=== PATIENT | male | born 1970 | race Caucasian/White ===

== ENCOUNTER 2019-08-08 13:25 | Inpatient (IN) | payer OTHER ==
[2019-08-08 17:43] VITALS: BMI 25.7
--- NOTE | 2019-08-08 20:53 | HP ---
"COWS - Scale Resting Pulse: 0= [place] 80 or Below Sweatin=Flushed/Facial Moisture Restless Observation: 0= Sits Still Pupil Size: 0= Normal to Room Light Bone or Joint Aches: 1= Mild Discomfort Runny Nose/ Eye Tearin= Constantly Teary/Runny GI Upset > 30mins: 2= Nausea/Diarrhea Tremor Observation: 0= None Yawning Observation: 0= None Anxiety or Irritability: 2=Irritable/Anxious Goose Flesh Skin: 0=Smooth Skin COWS Score: 11 CIWA Score Nausea/Vomitin Muscle Tremors: None Anxiety: 4-Mod. Anxious/Guarded Agitation: 0-Normal Activity Paroxysmal Sweats: 2 Orientation: 1-Uncertain about Date Tacttile Disturbances: 0-None Auditory Disturbances: 0-None Visual Disturbances: 2-Mild Sensitivity Headache: 2-Mild CIWA-Ar Total Score: 13 - Admission Criteria OASAS Guidelines: Admission for Medically Managed Detox: Requires at least one of the followin. CIWA greater than 12 2. Seizures within the past 24 hours 3. Delirium tremens within the past 24 hours 4. Hallucinations within the past 24 hours 5. Acute intervention needed for co occurring medical disorder 6. Acute intervention needed for co occurring psychiatric disorder 7. Severe withdrawal that cannot be handled at a lower level of care (continued vomiting, continued diarrhea, abnormal vital signs) requiring intravenous medication and/or fluids 8. Admission [facility] Allergies/Adverse Reactions: Allergies Allergy/AdvReac Type Severity Reaction Status Date / Time No Known Allergies Allergy Verified 08/08/19 17:38 History of Present Illness: pt here requesting detox from etoh and heroin use since age 14 , reports he was in [place] x 4 years , returned one month ago , previously in [facility] until 8 mo ago , stopped going @ 70 mg MDD . Current daily use 10 bags IV in [facility] , needles from exchange , denies re-using, denies sharing , denies OD , latest use yesterday . cocaine : 10 bags/day IV , latest use yesterday DENIES [facility] AT THIS TIME etoh : 7-8 beers/day , denies seizures, blackouts , tremors . was in detox [facility] left AMA Tuesday , relapsed after leaving facility . tobacco : 1 ppd not interested in smoking cessation . Search Terms: ariadne russell, 1970 Search Date: 08/08/2019 08:45:15 PM States Searched: [place] , [place] This report was requested by: Ary Herman | Reference #: [id number] Prescriptions Dispensed in [place], [place] There are no results for the search terms that you entered. PMHX : Hep C no tx PShx : cyst Psych : SAD Exam Limitations: Clinical Condition - Ebola screening Have you traveled outside of the country in the last 21 days: No (NN) Have you had contact with anyone from an Ebola affected area: No Do you have a fever: No - Review of Systems Constitutional: No Symptoms Reported, Changes in sleep EENT: reports: Nose Congestion Respiratory: reports: No Symptoms reported Cardiac: reports: No Symptoms Reported GI: reports: Nausea, Indigestion, Abdominal cramping : reports: No Symptoms Reported Musculoskeletal: reports: See HPI, Joint Pain (occasional knee pain), Muscle Pain Integumentary: reports: See HPI Neuro: reports: Headache Endocrine: reports: No Symptoms Reported Psychiatric: reports: Agitated, Anxious, Disorientated, other (h/o cutting on the forearm in the past , denies current SI / HI .) Patient History - Smoking Cessation Smoking history: Current every day smoker Have you smoked in the past 12 months: Yes Hx Chewing Tobacco Use: No Initiated information on smoking cessation: Yes 'Breaking Loose' booklet given: 08/08/19 - Substances abused Alcohol Substance route: Oral Frequency: Daily Amount used: 8 x 24- oz BOTTLES Age of first use: 13 Date of last use: 08/07/19 Heroin Substance route: Injection Frequency: Daily Amount used: 10 BAGS Age of first use: 14 Date of last use: 08/07/19 Cocaine Substance route: Injection Frequency: Daily Amount used: 10-12 BAGS Age of first use: 14 Date of last use: 08/07/19 Admission Physical Exam BHS - Vital Signs Vital Signs: Vital Signs - 24 hr 08/08/19 17:34 Temperature 97.5 F L Pulse Rate 77 Respiratory 16 Rate Blood Pressure 114/75 - Physical General Appearance: Yes: Mild Distress, Moderate Distress, Anxious HEENTM: Yes: EOMI, Normocephalic, Normal Voice Respiratory: Yes: Lungs Clear, No Respiratory Distress, No Accessory Muscle Use Neck: Yes: No masses,lesions,Nodules, Trachea in good position Cardiology: Yes: Regular Rhythm, Regular Rate, S1, S2 Abdominal: Yes: Non Tender, Soft, Decreased BS Back: Yes: Normal Inspection Musculoskeletal: Yes: full range of Motion, Gait Steady Extremities: Yes: Normal Range of Motion, Non-Tender, Swelling (nani hands dorsum - mild) Neurological: Yes: Alert, Disoriented Integumentary: Yes: Warm, Track Schwab (nani hands dorsum and forearms) - Diagnostic (1) Opioid use disorder Current Visit: Yes Status: Chronic (2) Cocaine use disorder Current Visit: Yes Status: Chronic (3) Nicotine dependence Current Visit: Yes Status: Chronic Qualifiers: Nicotine product type: cigarettes Breathalyzer - Breathalyzer Breathalyzer: 0 Urine Drug Screen - Test Device Lot number: [id number] Expiration date: 02/21/21 - Control Is test valid?: Yes - Results Drug screen NEGATIVE: No Urine drug screen results: HANY-Cocaine, FEN-Fentanyl, MOP-Opiates, MTD-Methadone , BZO-Benzodiazepines Inpatient Rehab Admission - Rehab Decision to Admit Inpatient rehab admission?: No"
[2019-08-08] MEDS ORDERED: MELATONIN 5 MG TABLETS PO PRN (21:21)
[2019-08-08] MEDS ORDERED: ACETAMINOPHEN 325 MG TABLET (FP) PO PRN ×2 (21:21)
[2019-08-08] MEDS ORDERED: MAG HYDROX/AL HYDROX/SIMETH 30 ML UNIT-DOSE CUP PO PRN (21:21)
[2019-08-08] MEDS ORDERED: hydrOXYzine PAMOATE 25 MG CAPSULE (FP) PO PRN (21:21)
[2019-08-08] MEDS ORDERED: MAGNESIUM HYDROX 2400MG/30ML ORAL SUSPENSION 30 ML CUP PO PRN (21:21)
[2019-08-08] MEDS ORDERED: BISMUTH SUBSALICYLATE 524 MG/30 ML UD PO PRN (21:21)
[2019-08-08] MEDS ORDERED: MENTHOL/PHENOL 1 EACH UD MM PRN (21:21)
[2019-08-08] MEDS ORDERED: IBUPROFEN 400 MG TABLET (FP) PO PRN (21:21)
[2019-08-08] MEDS ORDERED: METHOCARBAMOL 500 MG TABLET PO PRN (21:21)
[2019-08-08] MEDS ORDERED: guaiFENesin 200 MG/10 ML 10 ML UNIT-DOSE CUPS PO PRN (21:21)
[2019-08-08] MEDS ORDERED: MAGNESIUM CITRATE 300 ML BOTTLE PO PRN (21:21)
[2019-08-08] MEDS ORDERED: P-EPHED 60MG/TRIPROLIDI 2.5MG TABLET PO PRN (21:21)
[2019-08-08] MEDS ORDERED: diazePAM 5 MG TABLET PO PRN (21:23)
[2019-08-08] MEDS ORDERED: cloNIDine HCL 0.1 MG TABLET PO PRN (21:23)
[2019-08-08] MEDS ORDERED: METHADONE HCL 10 MG TABLET (FOR DETOX USE ONLY) PO ONE (22:00)
[2019-08-08] MEDS: diazePAM 5 MG TABLET PO SCH (23:01)
[2019-08-08] MEDS: THIAMINE HCL 100 MG TABLET (FP) PO SCH (23:01)
[2019-08-09] MEDS: diazePAM 5 MG TABLET PO SCH ×3 (06:32→22:30)
[2019-08-09] MEDS ORDERED: METHADONE HCL 10 MG TABLET (FOR DETOX USE ONLY) ONE (08:54)
[2019-08-09] MEDS ORDERED: METHADONE HCL 5 MG TABLET (FOR DETOX USE ONLY) ONE (08:54)
[2019-08-09] MEDS ORDERED: METHADONE (DETOX) 20 MG, METHADONE (DETOX) 5 MG PO ONE (10:00)
[2019-08-09] MEDS: PRENATAL VITAMINS W/ FOLIC ACID TABLET (FP) PO SCH (10:42)
[2019-08-09 11:39] LABS: HEMATOCRIT 41.2 % (35.4-49); HEMOGLOBIN 14.3 GM/dL (11.7-16.9); MCH 33.8 pg (25.7-33.7); MCHC 34.7 g/dl (32.0-35.9); MEAN CELL VOLUME 97.5 fl (80-96); MEAN PLT VOLUME 7.4 fl (7.5-11.1); PLATELET COUNT 283 K/MM3 (134-434); RBC 4.22 M/mm3 (4.00-5.60); RDW 13.2 % (11.9-15.9); WHITE BLOOD COUNT 8.8 K/mm3 (4.0-10.0)
[2019-08-09 11:44] LABS: BILIRUBIN,TOTAL 0.5 mg/dL (0.2-1); BLOOD UREA NITROGEN 16.7 mg/dL (7-18); CREATININE 0.9 mg/dL (0.55-1.3); TOT PROT 6.2 g/dl (6.4-8.2)
--- NOTE | 2019-08-09 11:45 | PN ---
[facility] CIWA - CIWA Score Nausea/Vomitin-No Nausea/No Vomiting Muscle Tremors: 1-None Visible, but [place] Anxiety: 2 Agitation: 1-Slight > Activity Paroxysmal Sweats: 2 Orientation: 1-Uncertain about Date Tacttile Disturbances: 2-Mild Itch/Numbness/Burn Auditory Disturbances: 0-None Visual Disturbances: 1-Very Mild Sensitivity Headache: 1-Very Mild CIWA-Ar Total Score: 11 S COWS - Scale Resting Pulse: 0= [place] 80 or Below Sweatin= Chills/Flushing Restless Observation: 1= Difficult to Sit Still Pupil Size: 0= Normal to Room Light Bone or Joint Aches: 1= Mild Discomfort Runny Nose/ Eye Tearin= Nasal Congestion GI Upset > 30mins: 1= Stomach Cramp Tremor Observation of Outstretched Hands: 1= Tremor [place], Not Seen Yawning Observation: 2= >3x During Session Anxiety or Irritability: 2=Irritable/Anxious Goose Flesh Skin: 0=Smooth Skin COWS Score: 10 S Progress Note (SOAP) Subjective: Patient is a 49 yo male with hx of alcohol and opioid dependence is here on methadone and valium detox protocol c/o of interrupted sleep, chills, sweats Objective: 08/09/19 11:44 Vital Signs Temperature 97.7 F 08/09/19 10:00 Pulse Rate 75 08/09/19 10:00 Respiratory Rate 18 08/09/19 10:00 Blood Pressure 116/73 08/09/19 10:00 O2 Sat by Pulse Oximetry (%) Laboratory Last Values Sodium 141 mmol/L (136-145) 08/09/19 08:20 Potassium 4.0 mmol/L (3.5-5.1) 08/09/19 08:20 Chloride 107 mmol/L (98-107) 08/09/19 08:20 Carbon Dioxide 28 mmol/L (21-32) 08/09/19 08:20 Anion Gap 5 MMOL/L (8-16) L 08/09/19 08:20 BUN 16.7 mg/dL (7-18) 08/09/19 08:20 Creatinine 0.9 mg/dL (0.55-1.3) 08/09/19 08:20 Est GFR (CKD-EPI)AfAm 115.83 08/09/19 08:20 Est GFR (CKD-EPI)NonAf 99.94 08/09/19 08:20 Random Glucose 153 mg/dL (74-106) H 08/09/19 08:20 Calcium 9.0 mg/dL (8.5-10.1) 08/09/19 08:20 Total Bilirubin 0.5 mg/dL (0.2-1) 08/09/19 08:20 AST 54 U/L (15-37) H 08/09/19 08:20 ALT 96 U/L (13-61) H 08/09/19 08:20 Alkaline Phosphatase 110 U/L (45-117) 08/09/19 08:20 Total Protein 6.2 g/dl (6.4-8.2) L 08/09/19 08:20 Albumin 3.0 g/dl (3.4-5.0) L 08/09/19 08:20 labs reviewed 08/09/19 11:46 Assessment: 08/09/19 11:46 Aox3 no acute distress EENT WNL Full ROM ambulating int he unit withdrawal sx Plan: increase fluids continue detox continue to monitor
--- NOTE | 2019-08-09 12:01 | EKG ---
Test Reason : Blood Pressure : / mmHG Vent. Rate : 062 BPM Atrial Rate : 062 BPM P-R Int : 110 ms QRS Dur : 088 ms QT Int : 408 ms P-R-T Axes : 016 076 069 degrees QTc Int : 414 ms SINUS RHYTHM WITH SHORT [place] OTHERWISE NORMAL ECG NO PREVIOUS ECGS AVAILABLE Confirmed by JUVENTINO VELA, ALBARO ([id number]) on 08/09/2019 12:01:33 PM Referred By: Confirmed By:ALBARO JAUREGUI MD
--- NOTE | 2019-08-09 13:56 | CONSULT ---
[facility] Psychiatric Consult - Data Date of interview: 08/09/19 Admission source: Self-referred Identifying data: Mr Bo is a 49 years old male , unemployed with no source of income, homeless seeking detox treatment for alcohol, opioid and cocaine Substance Abuse History: Reports history of alcohol, heroin and cocaine use. Refer to addiction counselor's summary for further information Medical History: Significant for hepatitis C and history of cyst removal in upper right chest. Smokes cigarettes 1 ppd Psychiatric History: Reports being diagnosed with Schizophrenia approximately 6- 7 years ago while in [facility]. Reports multiple psychiatric hospitalizations in [place] & [facility]. 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 Beside Klonopin that he was prescribed in [place] he does recall name of any medication he has been on. He is sure whether or not he was prescribed medication when he was discharged from [place]. 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 Denies previous suicidal attempt. At present, denies experiencing psychotic symptoms, S/H ideations. However, reports sleeping poorly Physical/Sexual Abuse/Trauma History: Denies history of abuse as a child or DV relationship Mental Status Exam - Mental Status Exam Alert and Oriented to: Time, Place, Person Cognitive Function: Fair Patient Appearance: Disheveled Mood: Hopeful, Euthymic Patient Behavior: Cooperative Speech Pattern: Clear Voice Loudness: Normal Thought Process: Intact Hallucinations: Denies Suicidal Ideation: Denies Homicidal Ideation: Denies Insight/Judgement: Poor Sleep: Poorly Appetite: Good Muscle strength/Tone: Normal Gait/Station: Normal Psychiatric Findings - Problem List ([place] 1, 2,3) (1) Schizophrenia Current Visit: Yes Status: Chronic (2) Uncomplicated opioid dependence Current Visit: Yes Status: Acute (3) Alcohol dependence, uncomplicated Current Visit: Yes Status: Acute (4) Cocaine dependence Current Visit: Yes Status: Acute (5) Nicotine dependence Current Visit: Yes Status: Chronic Qualifiers: Nicotine product type: cigarettes (6) Hepatitis C Current Visit: Yes Status: Chronic - Initial Treatment Plan Initial Treatment Plan: Continue inpatient detoxification
[2019-08-09] MEDS: THIAMINE HCL 100 MG TABLET (FP) PO SCH (22:30)
[2019-08-10] MEDS ORDERED: diazePAM 5 MG TABLET PO SCH (06:00)
[2019-08-10] MEDS: PRENATAL VITAMINS W/ FOLIC ACID TABLET (FP) PO SCH (09:17)
[2019-08-10 09:35] VITALS: BP 124/78; PULSE 67; TEMP 96.3
[2019-08-10] MEDS ORDERED: METHADONE HCL 10 MG TABLET (FOR DETOX USE ONLY) PO ONE (10:00)
--- NOTE | 2019-08-10 11:37 | PN ---
[facility] CIWA - CIWA Score Nausea/Vomitin-No Nausea/No Vomiting Muscle Tremors: 3 Anxiety: 2 Agitation: 2 Paroxysmal Sweats: 2 Orientation: 0-Oriented Tacttile Disturbances: 0-None Auditory Disturbances: 0-None Visual Disturbances: 0-None Headache: 0-None Present CIWA-Ar Total Score: 9 BHS COWS - Scale Resting Pulse: 0= [place] 80 or Below Sweatin= No chills or Flushing Restless Observation: 1= Difficult to Sit Still Pupil Size: 0= Normal to Room Light Bone or Joint Aches: 1= Mild Discomfort Runny Nose/ Eye Tearin= None GI Upset > 30mins: 0= None Tremor Observation of Outstretched Hands: 1= Tremor [place], Not Seen Yawning Observation: 1= 1-2x During Session Anxiety or Irritability: 2=Irritable/Anxious Goose Flesh Skin: 0=Smooth Skin COWS Score: 6 S Progress Note (SOAP) Subjective: restless irritable agitation sweats Objective: 08/10/19 11:37 Vital Signs Temperature 96.3 F L 08/10/19 09:34 Pulse Rate 67 08/10/19 09:34 Respiratory Rate 17 08/10/19 09:34 Blood Pressure 124/78 08/10/19 09:34 O2 Sat by Pulse Oximetry (%) Laboratory Tests 08/09/19 08/09/19 08/09/19 08:20 08:20 08:20 WBC 8.8 RBC 4.22 Hgb 14.3 Hct 41.2 MCV 97.5 H MCH 33.8 H MCHC 34.7 RDW 13.2 Plt Count 283 MPV 7.4 L Sodium 141 Potassium 4.0 Chloride 107 Carbon Dioxide 28 Anion Gap 5 L BUN 16.7 Creatinine 0.9 Est GFR (CKD-EPI)AfAm 115.83 Est GFR (CKD-EPI)NonAf 99.94 Random Glucose 153 H Calcium 9.0 Total Bilirubin 0.5 AST 54 H ALT 96 H Alkaline Phosphatase 110 Total Protein 6.2 L Albumin 3.0 L RPR Titer Nonreactive aaox3 ambulating no acute distress Assessment: 08/10/19 11:37 withdrawals Plan: continue detox
--- NOTE | 2019-08-10 12:46 | PN ---
S Progress Note Note: pt did not want to stay to complete his detox. pt was advised to stay and prevent relapse, seizures, DT, OD and or loss; pt chose to sign AMA.
--- NOTE | 2019-08-10 12:47 | DS ---
[facility] Detox Discharge Summary Admission Date: 08/08/19 - History Present History: Alcohol Dependence, Cocaine Dependence, Opioid Dependence - Physical Exam Results Vital Signs: Vital Signs Temperature 96.3 F L 08/10/19 09:34 Pulse Rate 67 08/10/19 09:34 Respiratory Rate 17 08/10/19 09:34 Blood Pressure 124/78 08/10/19 09:34 O2 Sat by Pulse Oximetry (%) Pertinent Admission Physical Exam Findings: Vital Signs Temperature 96.3 F L 08/10/19 09:34 Pulse Rate 67 08/10/19 09:34 Respiratory Rate 08/10/19 09:34 Blood Pressure 124/78 08/10/19 09:34 O2 Sat by Pulse Oximetry (%) Laboratory Tests 08/09/19 08/09/19 08/09/19 08:20 08:20 08:20 WBC 8.8 RBC 4.22 Hgb 14.3 Hct 41.2 MCV 97.5 H MCH 33.8 H MCHC 34.7 RDW 13.2 Plt Count 283 MPV 7.4 L Sodium 141 Potassium 4.0 Chloride 107 Carbon Dioxide 28 Anion Gap 5 L BUN 16.7 Creatinine 0.9 Est GFR (CKD-EPI)AfAm 115.83 Est GFR (CKD-EPI)NonAf 99.94 Random Glucose 153 H Calcium 9.0 Total Bilirubin 0.5 AST 54 H ALT 96 H Alkaline Phosphatase 110 Total Protein 6.2 L Albumin 3.0 L RPR Titer Nonreactive aaox3 ambulating no acute distress - Treatment Hospital Course: Rehab Referral Accepted - Medication Discharge Medications: Ambulatory Orders NK [No Known Home Medication] 08/08/19 - Diagnosis (1) Alcohol dependence, uncomplicated Status: Acute (2) Cocaine dependence Status: Acute (3) Uncomplicated opioid dependence Status: Acute (4) Cocaine use disorder Status: Chronic (5) Hepatitis C Status: Chronic (6) Nicotine dependence Status: Chronic Qualifiers: Nicotine product type: cigarettes (7) Opioid use disorder Status: Chronic (8) Schizophrenia Status: Chronic - AMA Did Patient Leave Against Medical Advice: Yes
[2019-08-11] MEDS ORDERED: diazePAM 5 MG TABLET PO ONE (06:00)
[2019-08-11] MEDS ORDERED: METHADONE (DETOX) 10 MG, METHADONE (DETOX) 5 MG PO ONE (10:00)
[2019-08-12] MEDS ORDERED: METHADONE HCL 10 MG TABLET (FOR DETOX USE ONLY) PO ONE (10:00)
[2019-08-13] MEDS ORDERED: METHADONE HCL 5 MG TABLET (FOR DETOX USE ONLY) PO ONE (06:00)
== END 2019-08-10 12:16 | disposition left against medical advice (07) | DRG 770 ==
LOC: YASAS 13:25 → Y6N 22:21
PROVIDERS: ADMIT Allergy & Immunology; ATTEND Allergy & Immunology
PROC: HZ2ZZZZ Detoxification Services for Substance Abuse Treatment (ICD-10-PCS; principal; 2019-08-08)
DX: F11.23 Opioid dependence with withdrawal (principal); F10.230 Alcohol dependence with withdrawal, uncomplicated; F12.20 Cannabis dependence, uncomplicated; F17.210 Nicotine dependence, cigarettes, uncomplicated; F20.0 Paranoid schizophrenia; B18.2 Chronic viral hepatitis C; Z59.0 Homelessness
CPT/HCPCS: 36415; 80053; 85027; 86593; 93005; 93010

== ENCOUNTER 2020-12-30 11:50 | Inpatient (IN) | payer OTHER ==
[2020-12-30 12:42] VITALS: BMI 25.5
[2020-12-30] MEDS ORDERED: BISMUTH SUBSALICYLATE 524 MG/30 ML PO PRN (12:57)
[2020-12-30] MEDS ORDERED: MENTHOL/PHENOL 1 EACH UD MM PRN (12:57)
[2020-12-30] MEDS ORDERED: METHOCARBAMOL 500 MG TABLET PO PRN (12:57)
[2020-12-30] MEDS ORDERED: MAG HYDROX/AL HYDROX/SIMETH 30 ML UNIT-DOSE CUP PO PRN (12:57)
[2020-12-30] MEDS ORDERED: ONDANSETRON *ODT* 4 MG TABLET SL PRN (12:57)
[2020-12-30] MEDS ORDERED: MAGNESIUM CITRATE 300 ML BOTTLE PO PRN (12:57)
[2020-12-30] MEDS ORDERED: ACETAMINOPHEN 325 MG TABLET (FP) PO PRN ×2 (12:57)
[2020-12-30] MEDS ORDERED: MAGNESIUM HYDROX 2400MG/30ML ORAL SUSPENSION 30 ML CUP PO PRN (12:57)
[2020-12-30] MEDS ORDERED: NICOTINE POLACRILEX 2 MG GUM BUC PRN (12:57)
[2020-12-30] MEDS ORDERED: IBUPROFEN 400 MG TABLET (FP) PO PRN (12:57)
[2020-12-30] MEDS: hydrOXYzine PAMOATE 25 MG CAPSULE (FP) PO SCH ×3 (14:18→22:38)
[2020-12-30] MEDS: NICOTINE 21 MG/24 HOURS TOPICAL PATCH TD SCH (14:18)
[2020-12-30] MEDS: PRENATAL VITAMINS W/ FOLIC ACID TABLET (FP) PO SCH (14:18)
[2020-12-30] MEDS: THIAMINE HCL 100 MG TABLET (FP) PO SCH (22:38)
[2020-12-30] MEDS: MELATONIN 5 MG TABLETS PO SCH (22:39)
[2020-12-31] MEDS: hydrOXYzine PAMOATE 25 MG CAPSULE (FP) PO SCH ×5 (05:43→23:09)
[2020-12-31] MEDS ORDERED: cloNIDine HCL 0.1 MG TABLET PO PRN (09:43)
[2020-12-31] MEDS ORDERED: diazePAM 5 MG TABLET PO PRN (09:46)
[2020-12-31] MEDS ORDERED: METHADONE HCL 10 MG TABLET (FOR DETOX USE ONLY) PO ONE (10:15)
[2020-12-31 10:51] LABS: HEMATOCRIT 40.1 % (35.4-49); HEMOGLOBIN 13.9 GM/dL (11.7-16.9); MCH 34.5 pg (25.7-33.7); MCHC 34.8 g/dl (32.0-35.9); MEAN CELL VOLUME 99.2 fl (80-96); MEAN PLT VOLUME 8.9 fl (7.5-11.1); PLATELET COUNT 238 K/MM3 (134-434); RBC 4.04 M/mm3 (4.00-5.60); RDW 12.8 % (11.9-15.9); WHITE BLOOD COUNT 7.5 K/mm3 (4.0-10.0)
[2020-12-31 11:10] LABS: ALBUMIN 3.4 g/dl (3.4-5.0); BLOOD UREA NITROGEN 17.9 mg/dL (7-18)
[2020-12-31] MEDS: NICOTINE 21 MG/24 HOURS TOPICAL PATCH TD SCH (11:10)
[2020-12-31] MEDS: PRENATAL VITAMINS W/ FOLIC ACID TABLET (FP) PO SCH (11:10)
[2020-12-31 11:12] LABS: CALCIUM 9.4 mg/dL (8.5-10.1)
[2020-12-31 11:15] LABS: BILIRUBIN,TOTAL 1.1 mg/dL (0.2-1)
[2020-12-31 11:16] LABS: CREATININE 0.7 mg/dL (0.55-1.3); TOT PROT 6.7 g/dl (6.4-8.2)
[2020-12-31 11:50] LABS: HIV INTERPRETATION NEGATIVE (NEGATIVE)
[2020-12-31] MEDS: THIAMINE HCL 100 MG TABLET (FP) PO SCH (23:09)
[2020-12-31] MEDS: MELATONIN 5 MG TABLETS PO SCH (23:09)
[2021-01-01] MEDS: hydrOXYzine PAMOATE 25 MG CAPSULE (FP) PO SCH ×5 (06:26→22:28)
[2021-01-01] MEDS ORDERED: METHADONE HCL 10 MG TABLET (FOR DETOX USE ONLY) ONE (09:36)
[2021-01-01] MEDS ORDERED: METHADONE HCL 5 MG TABLET (FOR DETOX USE ONLY) ONE (09:36)
[2021-01-01 09:57] LABS: BLOOD UREA NITROGEN 15.6 mg/dL (7-18); CALCIUM 8.8 mg/dL (8.5-10.1)
[2021-01-01 09:58] LABS: INR 1.03 (0.83-1.09); PROTHROMBIN TIME (PATIENT) 12.5 SEC (9.7-13.0)
[2021-01-01 10:00] LABS: CREATININE 0.6 mg/dL (0.55-1.3)
[2021-01-01] MEDS ORDERED: METHADONE (DETOX) 20 MG, METHADONE (DETOX) 5 MG PO ONE (10:00)
[2021-01-01 10:02] LABS: BILIRUBIN,TOTAL 0.7 mg/dL (0.2-1); TOT PROT 6.3 g/dl (6.4-8.2)
[2021-01-01] MEDS: NICOTINE 21 MG/24 HOURS TOPICAL PATCH TD SCH (10:36)
[2021-01-01] MEDS: PRENATAL VITAMINS W/ FOLIC ACID TABLET (FP) PO SCH (10:36)
[2021-01-01] MEDS: MELATONIN 5 MG TABLETS PO SCH (22:28)
[2021-01-01] MEDS: THIAMINE HCL 100 MG TABLET (FP) PO SCH (22:28)
[2021-01-02] MEDS: hydrOXYzine PAMOATE 25 MG CAPSULE (FP) PO SCH ×5 (06:03→22:31)
[2021-01-02] MEDS ORDERED: METHADONE HCL 10 MG TABLET (FOR DETOX USE ONLY) PO ONE (10:00)
[2021-01-02] MEDS: PRENATAL VITAMINS W/ FOLIC ACID TABLET (FP) PO SCH (11:53)
[2021-01-02] MEDS: NICOTINE 21 MG/24 HOURS TOPICAL PATCH TD SCH (11:54)
[2021-01-02] MEDS: THIAMINE HCL 100 MG TABLET (FP) PO SCH (22:31)
[2021-01-02] MEDS: MELATONIN 5 MG TABLETS PO SCH (22:32)
[2021-01-03] MEDS: hydrOXYzine PAMOATE 25 MG CAPSULE (FP) PO SCH ×5 (06:15→22:24)
[2021-01-03] MEDS ORDERED: METHADONE HCL 5 MG TABLET (FOR DETOX USE ONLY) ONE (09:15)
[2021-01-03] MEDS ORDERED: METHADONE HCL 10 MG TABLET (FOR DETOX USE ONLY) ONE (09:15)
[2021-01-03] MEDS ORDERED: METHADONE (DETOX) 10 MG, METHADONE (DETOX) 5 MG PO ONE (10:00)
[2021-01-03] MEDS: NICOTINE 21 MG/24 HOURS TOPICAL PATCH TD SCH (10:46)
[2021-01-03] MEDS: PRENATAL VITAMINS W/ FOLIC ACID TABLET (FP) PO SCH (10:47)
[2021-01-03] MEDS: MELATONIN 5 MG TABLETS PO SCH (22:24)
[2021-01-03] MEDS: THIAMINE HCL 100 MG TABLET (FP) PO SCH (22:24)
[2021-01-04] MEDS: hydrOXYzine PAMOATE 25 MG CAPSULE (FP) PO SCH (06:22)
[2021-01-04 06:38] VITALS: BP 134/82; PULSE 59; TEMP 97.8
[2021-01-04] MEDS ORDERED: METHADONE HCL 10 MG TABLET (FOR DETOX USE ONLY) PO ONE (10:00)
[2021-01-05] MEDS ORDERED: METHADONE HCL 5 MG TABLET (FOR DETOX USE ONLY) PO ONE (06:00)
== END 2021-01-04 10:35 | disposition home or self-care (01) | DRG 773 ==
LOC: YASAS 11:50 → UNDOADMIN 13:09 → Y6N 13:09
PROVIDERS: ADMIT Allergy & Immunology; ATTEND Allergy & Immunology
PROC: HZ2ZZZZ Detoxification Services for Substance Abuse Treatment (ICD-10-PCS; principal; 2020-12-30)
DX: F11.23 Opioid dependence with withdrawal (principal); F10.230 Alcohol dependence with withdrawal, uncomplicated; F17.210 Nicotine dependence, cigarettes, uncomplicated; F19.282 Other psychoactive substance dependence with psychoactive substance-induced sleep disorder; F19.24 Other psychoactive substance dependence with psychoactive substance-induced mood disorder; F20.9 Schizophrenia, unspecified; B18.2 Chronic viral hepatitis C; R74.01 Elevation of levels of liver transaminase levels; R74.8 Abnormal levels of other serum enzymes
CPT/HCPCS: 36415; 80053; 85027; 85610; 86780; 87389; 93005; 93010; C9803; U0003; U0005

== ENCOUNTER 2021-02-07 17:29 | Inpatient (IN) | payer OTHER ==
[2021-02-07 19:05] VITALS: BMI 25.7
[2021-02-07] MEDS ORDERED: MAG HYDROX/AL HYDROX/SIMETH 30 ML UNIT-DOSE CUP PO PRN (20:48)
[2021-02-07] MEDS ORDERED: MAGNESIUM HYDROX 2400MG/30ML ORAL SUSPENSION 30 ML CUP PO PRN (20:48)
[2021-02-07] MEDS ORDERED: ACETAMINOPHEN 325 MG TABLET (FP) PO PRN ×2 (20:48)
[2021-02-07] MEDS ORDERED: METHOCARBAMOL 500 MG TABLET PO PRN (20:48)
[2021-02-07] MEDS ORDERED: ONDANSETRON *ODT* 4 MG TABLET SL PRN (20:48)
[2021-02-07] MEDS ORDERED: NICOTINE POLACRILEX 2 MG GUM BUC PRN (20:48)
[2021-02-07] MEDS ORDERED: MENTHOL/PHENOL 1 EACH UD MM PRN (20:48)
[2021-02-07] MEDS ORDERED: MAGNESIUM CITRATE 300 ML BOTTLE PO PRN (20:48)
[2021-02-07] MEDS ORDERED: BISMUTH SUBSALICYLATE 524 MG/30 ML PO PRN (20:48)
[2021-02-07] MEDS ORDERED: IBUPROFEN 400 MG TABLET (FP) PO PRN (20:48)
[2021-02-07] MEDS: THIAMINE HCL 100 MG TABLET (FP) PO SCH (23:03)
[2021-02-07] MEDS: hydrOXYzine PAMOATE 25 MG CAPSULE (FP) PO PRN (23:03)
[2021-02-07] MEDS: MELATONIN 5 MG TABLETS PO SCH (23:03)
[2021-02-08] MEDS: NICOTINE 14 MG/24 HOURS TOPICAL PATCH TD SCH (10:27)
[2021-02-08] MEDS: PRENATAL VITAMINS W/ FOLIC ACID TABLET (FP) PO SCH (10:27)
[2021-02-08] MEDS: hydrOXYzine PAMOATE 25 MG CAPSULE (FP) PO PRN (10:28)
[2021-02-08 11:48] LABS: HEMATOCRIT 45.1 % (35.4-49); HEMOGLOBIN 15.2 GM/dL (11.7-16.9); MCH 32.9 pg (25.7-33.7); MCHC 33.6 g/dl (32.0-35.9); MEAN CELL VOLUME 97.8 fl (80-96); MEAN PLT VOLUME 7.6 fl (7.5-11.1); PLATELET COUNT 212 10^3/uL (134-434); RBC 4.61 M/mm3 (4.00-5.60); RDW 13.2 % (11.9-15.9); WHITE BLOOD COUNT 5.2 K/mm3 (4.0-10.0)
[2021-02-08 12:11] LABS: ALBUMIN 3.1 g/dl (3.4-5.0); CALCIUM 8.8 mg/dL (8.5-10.1)
[2021-02-08 12:15] LABS: BILIRUBIN,TOTAL 1.2 mg/dL (0.2-1); CREATININE 0.7 mg/dL (0.55-1.3); TOT PROT 6.7 g/dl (6.4-8.2)
[2021-02-08] MEDS ORDERED: methaDONE HCL 10 MG TABLET (FOR DETOX USE ONLY) PO ONE (12:24)
[2021-02-08] MEDS ORDERED: cloNIDine HCL 0.1 MG TABLET PO PRN (12:24)
[2021-02-08] MEDS: THIAMINE HCL 100 MG TABLET (FP) PO SCH (23:03)
[2021-02-08] MEDS: MELATONIN 5 MG TABLETS PO SCH (23:03)
[2021-02-09] MEDS ORDERED: methaDONE HCL 10 MG TABLET (FOR DETOX USE ONLY) ONE (09:09)
[2021-02-09] MEDS: PRENATAL VITAMINS W/ FOLIC ACID TABLET (FP) PO SCH (10:29)
[2021-02-09] MEDS: NICOTINE 14 MG/24 HOURS TOPICAL PATCH TD SCH (10:31)
[2021-02-09] MEDS: MELATONIN 5 MG TABLETS PO SCH (22:35)
[2021-02-09] MEDS: THIAMINE HCL 100 MG TABLET (FP) PO SCH (22:35)
[2021-02-09 22:52] LABS: HIV INTERPRETATION NEGATIVE (NEGATIVE)
[2021-02-10] MEDS ORDERED: methaDONE HCL 10 MG TABLET (FOR DETOX USE ONLY) PO ONE (10:00)
[2021-02-10] MEDS: PRENATAL VITAMINS W/ FOLIC ACID TABLET (FP) PO SCH (13:09)
[2021-02-10] MEDS: NICOTINE 14 MG/24 HOURS TOPICAL PATCH TD SCH (13:11)
[2021-02-10 19:25] VITALS: BP 123/81; PULSE 70; TEMP 97.3
== END 2021-02-10 18:32 | disposition other institution (70) | DRG 773 ==
LOC: YASAS 17:29 → Y3N 19:50 → Y5N 02-10 19:05
PROVIDERS: ADMIT Allergy & Immunology; ATTEND Allergy & Immunology
PROC: HZ2ZZZZ Detoxification Services for Substance Abuse Treatment (ICD-10-PCS; principal; 2021-02-07)
DX: F11.23 Opioid dependence with withdrawal (principal); F10.20 Alcohol dependence, uncomplicated; F14.20 Cocaine dependence, uncomplicated; F17.210 Nicotine dependence, cigarettes, uncomplicated; F19.282 Other psychoactive substance dependence with psychoactive substance-induced sleep disorder; F20.9 Schizophrenia, unspecified; F31.9 Bipolar disorder, unspecified; B18.2 Chronic viral hepatitis C; R74.8 Abnormal levels of other serum enzymes; R74.01 Elevation of levels of liver transaminase levels; Z56.0 Unemployment, unspecified; Z59.0 Homelessness
CPT/HCPCS: 36415; 80053; 85027; 86780; 87389; C9803; U0003; U0005

== ENCOUNTER 2021-02-10 20:04 | Inpatient (IN) | payer OTHER ==
[2021-02-10] MEDS ORDERED: MAG HYDROX/AL HYDROX/SIMETH 30 ML UNIT-DOSE CUP PO PRN (21:15)
[2021-02-10] MEDS ORDERED: IBUPROFEN 400 MG TABLET (FP) PO PRN (21:15)
[2021-02-10] MEDS ORDERED: MAGNESIUM HYDROX 2400MG/30ML ORAL SUSPENSION 30 ML CUP PO PRN (21:15)
[2021-02-10] MEDS ORDERED: MENTHOL/PHENOL 1 EACH UD MM PRN (21:15)
[2021-02-10] MEDS ORDERED: NICOTINE POLACRILEX 2 MG GUM BUC PRN (21:15)
[2021-02-10] MEDS ORDERED: MAGNESIUM CITRATE 300 ML BOTTLE PO PRN (21:15)
[2021-02-10] MEDS ORDERED: guaiFENesin 200 MG/10 ML 10 ML UNIT-DOSE CUPS PO PRN (21:15)
[2021-02-10] MEDS ORDERED: LOPERAMIDE HCL 2 MG CAPSULE PO PRN (21:15)
[2021-02-10] MEDS ORDERED: P-EPHED 60MG/TRIPROLIDI 2.5MG TABLET PO PRN (21:15)
[2021-02-10] MEDS: THIAMINE HCL 100 MG TABLET (FP) PO SCH (21:52)
[2021-02-10] MEDS: MELATONIN 5 MG TABLETS PO SCH (21:52)
[2021-02-11] MEDS: PRENATAL VITAMINS W/ FOLIC ACID TABLET (FP) PO SCH (09:37)
[2021-02-11] MEDS: THIAMINE HCL 100 MG TABLET (FP) PO SCH (21:16)
[2021-02-11] MEDS: MELATONIN 5 MG TABLETS PO SCH (21:16)
[2021-02-12] MEDS: PRENATAL VITAMINS W/ FOLIC ACID TABLET (FP) PO SCH (10:42)
[2021-02-12] MEDS: THIAMINE HCL 100 MG TABLET (FP) PO SCH (21:14)
[2021-02-12] MEDS: MELATONIN 5 MG TABLETS PO SCH (21:15)
[2021-02-13] MEDS: PRENATAL VITAMINS W/ FOLIC ACID TABLET (FP) PO SCH (10:35)
[2021-02-13] MEDS: MELATONIN 5 MG TABLETS PO SCH (21:34)
[2021-02-13] MEDS: THIAMINE HCL 100 MG TABLET (FP) PO SCH (21:34)
[2021-02-14] MEDS: PRENATAL VITAMINS W/ FOLIC ACID TABLET (FP) PO SCH (10:48)
[2021-02-14] MEDS: THIAMINE HCL 100 MG TABLET (FP) PO SCH (21:49)
[2021-02-14] MEDS: MELATONIN 5 MG TABLETS PO SCH (21:49)
[2021-02-15] MEDS: PRENATAL VITAMINS W/ FOLIC ACID TABLET (FP) PO SCH (10:23)
[2021-02-15] MEDS: MELATONIN 5 MG TABLETS PO SCH (21:57)
[2021-02-15] MEDS: THIAMINE HCL 100 MG TABLET (FP) PO SCH (21:57)
[2021-02-16] MEDS: PRENATAL VITAMINS W/ FOLIC ACID TABLET (FP) PO SCH (10:33)
[2021-02-16] MEDS: THIAMINE HCL 100 MG TABLET (FP) PO SCH (21:43)
[2021-02-16] MEDS: MELATONIN 5 MG TABLETS PO SCH (21:43)
[2021-02-17] MEDS: PRENATAL VITAMINS W/ FOLIC ACID TABLET (FP) PO SCH (09:59)
[2021-02-17] MEDS: THIAMINE HCL 100 MG TABLET (FP) PO SCH (21:07)
[2021-02-17] MEDS: MELATONIN 5 MG TABLETS PO SCH (21:07)
[2021-02-18 08:55] VITALS: TEMP 97.3
[2021-02-18] MEDS: PRENATAL VITAMINS W/ FOLIC ACID TABLET (FP) PO SCH (09:53)
[2021-02-18] MEDS: THIAMINE HCL 100 MG TABLET (FP) PO SCH (21:10)
[2021-02-18] MEDS: MELATONIN 5 MG TABLETS PO SCH (21:10)
[2021-02-19 06:58] VITALS: BP 116/79; PULSE 72
[2021-02-19] MEDS: PRENATAL VITAMINS W/ FOLIC ACID TABLET (FP) PO SCH (10:15)
[2021-02-19 11:28] LABS: CALCIUM 9.3 mg/dL (8.5-10.1)
[2021-02-19 11:29] LABS: ALBUMIN 3.2 g/dl (3.4-5.0)
[2021-02-19 11:30] LABS: BLOOD UREA NITROGEN 17.5 mg/dL (7-18)
[2021-02-19 11:32] LABS: CREATININE 0.7 mg/dL (0.55-1.3)
[2021-02-19 11:34] LABS: BILIRUBIN,TOTAL 0.7 mg/dL (0.2-1)
== END 2021-02-19 12:05 | disposition home or self-care (01) | DRG 772 ==
LOC: YASAS 20:04 → Y5N 20:06
PROVIDERS: ADMIT Allergy & Immunology; ATTEND Allergy & Immunology
PROC: HZ42ZZZ Group Counseling for Substance Abuse Treatment, Cognitive-Behavioral (ICD-10-PCS; principal; 2021-02-10)
DX: F11.20 Opioid dependence, uncomplicated (principal); F10.20 Alcohol dependence, uncomplicated; F14.20 Cocaine dependence, uncomplicated; F17.210 Nicotine dependence, cigarettes, uncomplicated; R74.01 Elevation of levels of liver transaminase levels; B18.2 Chronic viral hepatitis C
CPT/HCPCS: 36415; 80053; 82962

== ENCOUNTER 2022-06-28 11:43 | Inpatient (IN) | payer BC ==
[2022-06-28 12:58] VITALS: BMI 24.0
[2022-06-28] MEDS ORDERED: IBUPROFEN 600 MG TABLET (FP) PO PRN (14:29)
[2022-06-28] MEDS ORDERED: BENZOCAINE/MENTHOL (CHLORASEPTIC ) LOZENGE MM PRN (14:29)
[2022-06-28] MEDS ORDERED: NALOXONE HCL (KLOXXADO) 8 MG SPRAY NS PRN (14:29)
[2022-06-28] MEDS ORDERED: DICYCLOMINE HCL 10 MG CAPSULE PO PRN (14:29)
[2022-06-28] MEDS ORDERED: MAG HYDROX/AL HYDROX/SIMETH 30 ML UNIT-DOSE CUP PO PRN (14:29)
[2022-06-28] MEDS ORDERED: POLYETHYLENE GLYCOL (HEALTHYLAX) 3350 17 GM PACKET PO PRN (14:29)
[2022-06-28] MEDS ORDERED: IBUPROFEN 400 MG TABLET (FP) PO PRN (14:29)
[2022-06-28] MEDS ORDERED: ACETAMINOPHEN 325 MG TABLET (FP) PO PRN ×2 (14:29)
[2022-06-28] MEDS ORDERED: NICOTINE 10 MG CARTRIDGE (INHALER) IH PRN (14:29)
[2022-06-28] MEDS ORDERED: ONDANSETRON *ODT* 4 MG TABLET SL PRN (14:29)
[2022-06-28] MEDS ORDERED: BISMUTH SUBSALICYLATE 262 MG/15 ML BTL PO PRN (14:29)
[2022-06-28] MEDS ORDERED: LOPERAMIDE HCL 2 MG CAPSULE PO PRN (14:29)
[2022-06-28] MEDS ORDERED: MAGNESIUM HYDROX 2400MG/30ML ORAL SUSPENSION 30 ML CUP PO PRN (14:29)
[2022-06-28] MEDS: PRENATAL VITAMINS W/ FOLIC ACID TABLET (FP) PO SCH (14:56)
[2022-06-28] MEDS: hydrOXYzine PAMOATE 25 MG CAPSULE (FP) PO PRN (17:21)
[2022-06-28] MEDS: MELATONIN 5 MG TABLETS PO SCH (22:27)
[2022-06-28] MEDS: THIAMINE HCL 100 MG TABLET (FP) PO SCH (22:27)
[2022-06-29] MEDS ORDERED: cloNIDine HCL 0.1 MG TABLET PO PRN (09:44)
[2022-06-29] MEDS ORDERED: methaDONE HCL 10 MG TABLET (FOR DETOX USE ONLY) PO ONE (09:44)
[2022-06-29] MEDS: PRENATAL VITAMINS W/ FOLIC ACID TABLET (FP) PO SCH (10:20)
[2022-06-29] MEDS: METHOCARBAMOL 500 MG TABLET PO PRN ×2 (10:20→22:30)
[2022-06-29] MEDS: hydrOXYzine PAMOATE 25 MG CAPSULE (FP) PO PRN ×2 (10:20→22:30)
[2022-06-29 11:35] LABS: HEMATOCRIT 43.4 % (35.4-49); HEMOGLOBIN 14.8 GM/dL (11.7-16.9); MCH 33.1 pg (25.7-33.7); MEAN CELL VOLUME 97.5 fl (80-96); PLATELET COUNT 140 10^3/uL (134-434); RBC 4.46 M/mm3 (4.00-5.60); RDW 13.4 % (11.9-15.9); WHITE BLOOD COUNT 8.5 K/mm3 (4.0-10.0)
[2022-06-29 12:23] LABS: ALBUMIN 3.1 g/dl (3.4-5.0); BILIRUBIN,TOTAL 0.6 mg/dL (0.2-1); BLOOD UREA NITROGEN 21.8 mg/dL (7-18); CALCIUM 9.2 mg/dL (8.5-10.1); CREATININE 0.8 mg/dL (0.55-1.3); TOT PROT 7.2 g/dl (6.4-8.2)
[2022-06-29] MEDS: MELATONIN 5 MG TABLETS PO SCH (22:30)
[2022-06-29] MEDS: THIAMINE HCL 100 MG TABLET (FP) PO SCH (22:30)
[2022-06-30] MEDS: PRENATAL VITAMINS W/ FOLIC ACID TABLET (FP) PO SCH (10:26)
[2022-06-30] MEDS: diazePAM 5 MG TABLET PO PRN (20:14)
[2022-06-30] MEDS: THIAMINE HCL 100 MG TABLET (FP) PO SCH (22:25)
[2022-06-30] MEDS: MELATONIN 5 MG TABLETS PO SCH (22:25)
[2022-07-01 08:43] VITALS: RESP 16
[2022-07-01] MEDS ORDERED: methaDONE HCL 10 MG TABLET (FOR DETOX USE ONLY) PO ONE (10:00)
[2022-07-01] MEDS: diazePAM 5 MG TABLET PO PRN (10:38)
[2022-07-01] MEDS: PRENATAL VITAMINS W/ FOLIC ACID TABLET (FP) PO SCH (10:40)
[2022-07-01 10:51] VITALS: BP 117/71; PULSE 76; TEMP 97.3
[2022-07-03] MEDS ORDERED: methaDONE HCL 10 MG TABLET (FOR DETOX USE ONLY) PO ONE (10:00)
== END 2022-07-01 12:40 | disposition left against medical advice (07) | DRG 770 ==
LOC: YASAS 11:43 → UNDOADMIN 14:07 → Y6N 14:07
PROVIDERS: ADMIT Allergy & Immunology; ATTEND Surgery
PROC: HZ2ZZZZ Detoxification Services for Substance Abuse Treatment (ICD-10-PCS; principal; 2022-06-28)
DX: F11.23 Opioid dependence with withdrawal (principal); F10.230 Alcohol dependence with withdrawal, uncomplicated; F13.20 Sedative, hypnotic or anxiolytic dependence, uncomplicated; F14.20 Cocaine dependence, uncomplicated; F17.210 Nicotine dependence, cigarettes, uncomplicated; F20.9 Schizophrenia, unspecified; F19.282 Other psychoactive substance dependence with psychoactive substance-induced sleep disorder; I10 Essential (primary) hypertension; B18.2 Chronic viral hepatitis C; R74.01 Elevation of levels of liver transaminase levels
CPT/HCPCS: 36415; 80053; 85027; 86593; 86780; C9803-CS; U0003; U0005